=== PATIENT | male | born 2000 | race Hispanic/Latino ===

== ENCOUNTER 2024-08-15 13:17 | Emergency (ER) | payer SELFPAY ==
[~2024-08-15] VITALS: Ht 177.8 cm; Wt 113.4 kg
--- NOTE | 2024-08-15 13:26 | ERN ---
ED Note History of Present Illness Stated Complaint: FEVER,MULTIPLE COMPLAINTS Time Seen by MD: 13:19 Dictation: PATIENT IS HERE WITH FLU-LIKE SYMPTOMS ONSET THIS MORNING TO INCLUDE FRONTAL HEADACHE, MILD SORE THROAT, BODY ACHES WE WILL CLEAR RHINITIS. NO NAUSEA VOMITING NO LOSS OF TASTE OR SMELL. NO PRIMARY CARE DOCTOR AND STATES HE TOOK SOME YOGURT AND THEN SOME JUICE WITH SUGAR IN TO MAKE HIS TEMPERATURE COME DOWN THIS MORNING. Past Medical History RN Note Reviewed/Agreed w/PFSH: Yes Review of System Dictation CONSTITUTIONAL: NEGATIVE EXCEPT FOR HPI FEVER CHILLS HEAD/FACE: NEGATIVE EXCEPT FOR HPI EENT: NEGATIVE EXCEPT FOR HPI CLEAR RHINITIS WITH SORE THROAT RESPIRATORY: NEGATIVE EXCEPT FOR HPI GASTROINTESTINAL/ABDOMINAL: NEGATIVE EXCEPT FOR HPI GENITOURINARY: NEGATIVE EXCEPT FOR HPI MUSCULOSKELETAL: NEGATIVE EXCEPT FOR HPI MALAISE INTEGUMENTARY: NEGATIVE EXCEPT FOR HPI NEUROLOGICAL/PSYCH: NEGATIVE EXCEPT FOR HPI HEMATOLOGIC/LYMPHATIC: NEGATIVE EXCEPT FOR HPI ALL SYSTEMS NEGATIVE, EXCEPT NOTED ABOVE. 13 POINT REVIEW OF SYSTEMS ASSESSED AND ALL NEGATIVE EXCEPT FOR ABOVE. Initial Vital Sign VS Vital Signs Date Time Temp Pulse Resp B/P (MAP) Pulse Ox O2 Delivery O2 Flow Rate FiO2 08/15/24 13:26 103.3 128 18 131/71 98 08/15/24 13:43 Room Air* 0 21 Physical Exam Dictation VITAL SIGNS REVIEWED GENERAL APPEARANCE: ALERT, ORIENTED X 3, NO ACUTE DISTRESS, WELL DEVELOPED, NOURISHED. HEAD AND FACE: NON-TRAUMATIC. EYES: PERRL, PINK CONJUNCTIVAS, EYELID NO TRAUMA, ANTERIOR CHAMBER WITH ARCUS SENILIS. EARS: PINNAS INTACT AND NO SIGNS OF TRAUMA OR ERYTHEMA EAR CANALS CLEAR AND NO DISCHARGE TM NO ERYTHEMA NOSE: CLEAR DISCHARGE, NO BLEEDING. OROPHARYNX: MOUTH NORMAL, TONGUE PINK, PHARYNX CLEAR, MILD PHARYNGEAL ERYTHEMA, TONSILS NO EXUDATES, NO ABSCESSES NOTED, MUCOUS MEMBRANE MOIST UVULA MIDLINE, VOICE IS CLEAR NECK: SUPPLE, NON-TENDER, NO THYROMEGALY, NO MASSES, NO JVD, NO BRUITS BREAST:DEFERRED CHEST:NO TENDERNESS, NO CREPITUS, NO PARADOXICAL MOVEMENT, NO RETRACTIONS LUNGS:CLEAR, WELL-VENTILATED, SYMMETRIC, NO RALES, NO WHEEZING, NO RHONCHI, NO STRIDOR, GOOD BREATH SOUNDS BILATERALLY HEART: REGULAR RATE, REGULAR RHYTHM, NO MURMUR, NO GALLOPS VASCULAR: NO PERIPHERAL EDEMA, ABDOMEN: SOFT, POSITIVE BOWEL SOUNDS, NONDISTENDED, NO GUARDING, NONTENDER, NO REBOUND, NO MASSES NO HEPATOMEGALY, NO SPLENOMEGALY, NO GERBER'S SIGN, NO HERNIAS. RECTAL: DEFERRED GENITAL: DEFERRED NEUROLOGICAL: NORMAL SPEECH, MOTOR FUNCTION INTACT, SENSORY FUNCTION INTACT MUSCULOSKELETAL: NECK NONTENDER, FULL RANGE OF MOTION, BACK NONTENDER, FULL RANGE OF MOTION, EXTREMITIES: NONTENDER, FULL RANGE OF MOTION SKIN: COLOR PINK, DRY, NO TURGOR, NO RASH, NO LACERATIONS, NO ABRASIONS, NO CONTUSIONS. LYMPHATIC: DEFERRED Results (Laboratory/Radiology) Laboratory/Radiology Laboratory Tests Test 08/15/24 13:40 Influenza Type A Antigen Negative For Type A Influenza Type B Antigen Negative For Type B SARS-CoV-2 Antigen (Rapid) PRESUMPTIVE NEGATIVE Group A Streptococcus Rapid negative (NEGATIVE) Labs Reviewed?: Yes ED Course ED Course Orders Procedure Category Date Status Time Covid19 (Sars Antigen LAB 08/15/24 Complete Rapid) 13:23 Influenza Type A & B, LAB 08/15/24 Complete Rapid 13:23 Rapid (Group A Strep) LAB 08/15/24 Complete 13:23 Vital Signs Date Time Temp Pulse Resp B/P (MAP) Pulse Ox O2 Delivery O2 Flow Rate FiO2 08/15/24 13:43 103.3 128 18 131/71 98 Room Air* 0 21 08/15/24 13:26 103.3 128 18 131/71 98 1425, workup was negative patient has acute viral syndrome. Discharged home with ibuprofen told to increase his fluids and to follow up with one of the doctors on the list provided empiric Medical Decision Making MDM Medical discharge making based on swabs for flu COVID and strep all swabs negat patient has 103 fever we will be treated for acut viral syndrome and given a list of the local doctors to follow up with the next 1-2 days DX & DISP Disposition: Discharge Departure Impression: Primary Impression: Acute viral syndrome Condition: Stable Scripts Ibuprofen (Ibuprofen 800 mg Tab) 800 Mg Tab 800 MG PO Q8H PRN for fever or pain, #30 TAB 0 Refills Prov: CRISTOBAL AVILA [employer] 08/15/24 Additional Instructions: Follow-up with primary care provider in 1 to 2 days. Take medications as directed here in the emergency room. Okay to continue home medications unless otherwise discussed during your visit in the emergency room today. Return to your nearest emergency room if symptoms worsen or if there is no improvement. Call 911 if you need immediate assistance. Take Tylenol or Motrin [id number] as needed and if no contraindications are present. Increase oral hydration. A wound culture or urine culture was ordered here in the emergency room department please follow-up with primary care provider and advise them to get repeat ports from our facility. If you had any Valeriano wrap/splints t hat were applied here, please do not remove them until you see your primary care or specialty. Increase your water intake. Take ibuprofen as needed for fever pain. Follow up with one of the doctors on the list provided you in the next several days. Referrals: SELF,REFERRAL (PCP) Time of Disposition: 14:26 I have reviewed the case, and I agree with, Diagnosis and Plan CRISTOBAL AVILA NP Aug 15, 2024 13:26
[2024-08-15 14:11] LABS: RAPID GROUP A STREP negative (NEGATIVE)
[2024-08-15 14:21] LABS: COVID19 (SARS ANTIGEN RAPID) PRESUMPTIVE NEGATIVE (NEGATIVE); INFLUENZA TYPE A Negative For Type A (NEGATIVE); INFLUENZA TYPE B Negative For Type B (NEGATIVE)
[2024-08-15] MEDS ORDERED: IBUP-2077 PO (14:26)
[2024-08-15] MEDS: ibuPROFEN 800 MG TAB PO ONE (14:43)
[2024-08-15 14:48] VITALS: BP 128/75; PULSE 92; RESP 18; TEMP 102.1; O2SAT 98
== END 2024-08-15 14:49 | disposition home or self-care (01) ==
LOC: EDH 13:17
DX: B34.9 Viral infection, unspecified (principal); Z20.822 Contact with and (suspected) exposure to COVID-19
CPT/HCPCS: 87426; 87804; 87880; 99283